=== PATIENT | female | born 1995 | race Two or more races ===

== ENCOUNTER 2023-06-02 09:54 | Inpatient (IN) | payer OTHER ==
[2023-06-02] MEDS ORDERED: Phenylephrine 40 MG/NS 250 ML 250 ML ONE (10:36)
[2023-06-02] MEDS ORDERED: Oxytocin 10 UNITS/ML VIAL ONE ×2 (10:36→10:37)
[2023-06-02] MEDS ORDERED: Ondansetron PF 4 MG/2 ML Vial ONE (10:36)
[2023-06-02] MEDS ORDERED: Dexamethasone 4 mg/ml Vial ONE (10:36)
[2023-06-02] MEDS ORDERED: Ketorolac Tromethamine 30 MG/ML VIAL ONE (10:36)
[2023-06-02] MEDS ORDERED: Morphine PF 10 MG/10 ML VIAL ONE (10:37)
[2023-06-02] MEDS ORDERED: Ondansetron PF 4 MG/2 ML Vial IVP PRN ×3 (10:43→12:52)
[2023-06-02] MEDS ORDERED: Carboprost 250 MCG/ML AMP IM PRN (10:43)
[2023-06-02] MEDS ORDERED: Promethazine HCl 25 MG/ML VIAL IM PRN ×2 (10:43→12:52)
[2023-06-02] MEDS ORDERED: Methylergonovine 0.2 MG/ML VIAL IM PRN (10:43)
[2023-06-02] MEDS ORDERED: hydrALAZINE 20 MG/ML VIAL SLOW IVP PRN ×2 (10:43→14:11)
[2023-06-02] MEDS ORDERED: Bicitra 30 ML UDCUP PO PRN (10:43)
[2023-06-02] MEDS ORDERED: Misoprostol 200 MCG TAB PR PRN (10:43)
[2023-06-02] MEDS ORDERED: Tranexamic Acid 1,000 MG/10 ML VIAL IVP PRN (10:43)
[2023-06-02] MEDS ORDERED: Famotidine/PF 20 mg/2ml Vial SLOW IVP PRN (10:43)
[2023-06-02] MEDS ORDERED: Oxytocin 30 units/NS 500 ML 500 ML IV SCH (10:45)
[2023-06-02] MEDS ORDERED: Azithromycin 500 MG in Sodium Chloride 0.9% 250 ML 250 ML IVPB SCH (10:45)
[2023-06-02] MEDS ORDERED: Lactated Ringer's 1,000 ML IV SCH (10:45)
[2023-06-02] MEDS ORDERED: CEFAZOLIN 2 GM in Sodium Chloride 0.9% 100 ML IVPB SCH (10:45)
[2023-06-02 10:49] VITALS: BMI 38.9
[2023-06-02 10:57] LABS: Hemoglobin 11.8 g/dL (12.0-15.5); Mean Corpuscular HGB CONC 33.7 g/dL (32.0-36.0); Mean Corpuscular Hemoglobin 26.9 pg (27.0-33.0); Mean Corpuscular Volume 79.7 fl (81.6-98.3); Mean Platelet Volume 9.7 fl (7.4-10.4); Platelet Count 266 10x3/uL (150-450); RBC Distribution Width 13.8 % (11.5-14.5); Red Blood Cell (RBC) Count 4.39 10x6/uL (3.90-5.03); White Blood Cell (WBC) Count 9.1 10x3/uL (3.5-10.5)
[2023-06-02 11:36] LABS: HBSAg Index 0.14 S/CO (0-0.99); Hep B Surf Ag - L&D Non-Reactive S/CO (NonReactive)
[2023-06-02 11:38] LABS: Syphilis Antibody Nonreactive (Nonreactive); Syphilis Antibody Index 0.05 S/CO (<1.00 Non-Reactive)
[2023-06-02] MEDS ORDERED: fentaNYL 50 mcg/mL 1 mL Vial SLOW IVP PRN (12:52)
[2023-06-02] MEDS ORDERED: Promethazine HCl 25 MG SUPP PR PRN (12:52)
[2023-06-02] MEDS ORDERED: Naloxone HCl 0.4 mg/ml Vial IVP PRN ×2 (12:52)
[2023-06-02] MEDS ORDERED: Naloxone HCl 0.4 mg/ml Vial IV PRN (12:52)
[2023-06-02] MEDS ORDERED: diphenhydrAMINE 50 MG/ML VIAL IVP PRN (12:52)
[2023-06-02] MEDS ORDERED: Meperidine HCl/PF 25 MG/ML VIAL SLOW IVP PRN (12:52)
[2023-06-02] MEDS ORDERED: Moisturizing Cream (Eucerin) 113 GM JAR TOP PRN (12:52)
[2023-06-02] MEDS ORDERED: Communication Order-Pharmacy FS SCH (13:00)
[2023-06-02] MEDS ORDERED: Ketorolac Tromethamine 30 MG/ML VIAL IVP SCH (13:00)
[2023-06-02] MEDS ORDERED: Boostrix 0.5 ML (Tdap) VIAL (>/=7 yrs of age) IM ONE (14:11)
[2023-06-02] MEDS ORDERED: Lanolin Ointment 7 GM TUBE TOP PRN (14:11)
[2023-06-02] MEDS ORDERED: Bisacodyl 10 MG SUPP PR PRN (14:11)
[2023-06-02] MEDS ORDERED: Simethicone Chewable 80 MG TAB PO PRN (14:11)
[2023-06-02] MEDS: Ketorolac Tromethamine 30 MG/ML VIAL IVP PRN (17:45)
[2023-06-02] MEDS: Ferrous Sulfate 325 MG TAB PO SCH (21:20)
[2023-06-02] MEDS: Docusate 100 MG CAP PO SCH (21:33)
[2023-06-03] MEDS ORDERED: HYDROcodone/Acetaminophen 5/325 mg Tablet PO PRN (01:00)
[2023-06-03 06:13] LABS: Hematocrit 32.2 % (34.9-44.5); Hemoglobin 10.3 g/dL (12.0-15.5); Mean Corpuscular Hemoglobin 26.3 pg (27.0-33.0); Mean Corpuscular Volume 82.4 fl (81.6-98.3); Platelet Count 239 10x3/uL (150-450); RBC Distribution Width 13.8 % (11.5-14.5); Red Blood Cell (RBC) Count 3.91 10x6/uL (3.90-5.03); White Blood Cell (WBC) Count 11.7 10x3/uL (3.5-10.5)
[2023-06-03] MEDS: Ferrous Sulfate 325 MG TAB PO SCH ×2 (07:45→22:05)
[2023-06-03] MEDS: Docusate 100 MG CAP PO SCH ×2 (09:30→22:00)
[2023-06-03] MEDS: Prenatal Vitamin 1 TAB PO SCH (09:30)
[2023-06-03] MEDS: Ketorolac Tromethamine 30 MG/ML VIAL IVP PRN (10:11)
[2023-06-03] MEDS: Ketorolac Tromethamine 30 MG/ML VIAL IVP SCH (16:58)
[2023-06-03] MEDS: Ibuprofen 800 MG TAB PO SCH (22:00)
[2023-06-04] MEDS: HYDROcodone/Acetaminophen 5/325 mg Tablet PO PRN ×2 (06:14→14:29)
[2023-06-04] MEDS: Ibuprofen 800 MG TAB PO SCH ×3 (06:15→22:00)
[2023-06-04] MEDS: Docusate 100 MG CAP PO SCH ×2 (09:37→20:20)
[2023-06-04] MEDS: Prenatal Vitamin 1 TAB PO SCH (09:37)
[2023-06-05] MEDS: Ferrous Sulfate 325 MG TAB PO SCH ×3 (05:47→13:56)
[2023-06-05] MEDS: Ibuprofen 800 MG TAB PO SCH (05:56)
[2023-06-05] MEDS: Ketorolac Tromethamine 30 MG/ML VIAL IVP SCH (07:18)
[2023-06-05 07:45] VITALS: BP 117/76; TEMP 98.2
[2023-06-05] MEDS: Docusate 100 MG CAP PO SCH (09:44)
[2023-06-05] MEDS: Prenatal Vitamin 1 TAB PO SCH (09:44)
== END 2023-06-05 13:00 | disposition home or self-care (01) | DRG 788 ==
LOC: CSHLD/OP 09:54 → CSHLD 10:19 → CSHPED 15:26
PROVIDERS: ADMIT Family Medicine; ATTEND Family Medicine
PROC: 10D00Z1 Extraction of Products of Conception, Low, Open Approach (ICD-10-PCS; principal; 2023-06-02)
DX: O34.211 Maternal care for low transverse scar from previous cesarean delivery (principal); O42.02 Full-term premature rupture of membranes, onset of labor within 24 hours of rupture; Z3A.38 38 weeks gestation of pregnancy; Z37.0 Single live birth; Z98.890 Other specified postprocedural states; Z83.3 Family history of diabetes mellitus; O99.892 Other specified diseases and conditions complicating childbirth; N73.6 Female pelvic peritoneal adhesions (postinfective)
CPT/HCPCS: 36415; 51702; 85027; 86780; 86850; 86900; 86901; 87340; 99285; J0456; J1100; J1885; J2274; J2405; J2590; J3490; J7050